=== PATIENT | male | born 1990 | race Two or more races ===

== ENCOUNTER 2025-01-04 00:53 | Emergency (ER) | payer SELFPAY ==
[~2025-01-04] VITALS: Ht 175.3 cm; Wt 72.2 kg
[2025-01-04 01:00] VITALS: BP 159/107; PULSE 110; RESP 18; O2SAT 97
--- NOTE | 2025-01-04 01:27 | ED.PDOC ---
HPI Comments 34-year-old male came to ER due to palpitations. Patient has no medical problems, states he was celebrating , was opening a wine bottle when he started having palpitations. Denies any acute chest pains or shortness of breath. Upon arrival tachycardic at 110 bpm and blood pressure of 159/107 mmHg. Patient denies any fever nausea or vomiting. Chief Complaint: Palpitations Time Seen by MD: 01:27 Reviewed Notes: Nurses Notes Information Source: Patient Mode of Arrival: Ambulatory Severity: Moderate Timing: Hours Duration: Since onset Location: Substernal Quality: Pressure Cardiac Risk Factors: None PE Risk Factors: None History of: None Associated Signs and Symptoms: None Past Medical History PAST MEDICAL HISTORY: Denies Surgical History: Denies all surgeries Family History Family History: Reviewed,noncontributory to illness Social History Smoker: Non-Smoker Alcohol: Occasionally Drugs: Denies Drug Use Lives In: Home Constitutional: denies: chills, diaphoresis, fatigue, fever, malaise, sweats, weakness, others EENTM: denies: blurred vision, double vision, ear bleeding, ear discharge, ear drainage, ear pain, ear ringing, eye pain, eye redness, hearing loss, mouth pain, mouth swelling, nasal discharge, nose bleeding, nose congestion, nose pain, photophobia, tearing, throat pain, throat swelling, voice changes, others Respiratory: denies: cough, hemoptysis, orthopnea, SOB at rest, shortness of breath, SOB with excertion, stridor, wheezing, others Cardiovascular: reports: palpitations; denies: chest pain, dizzy spells, diaphoresis, Dyspnea on exertion, edema, irregular heart beat, left arm pain, lightheadedness, PND, syncope, others Gastrointestinal: denies: abdomen distended, abdominal pain, blood streaked bowels, constipated, diarrhea, dysphagia, difficulty swallowing, hematemesis, melena, nausea, poor appetite, poor fluid intake, rectal bleeding, rectal pain, vomiting, others Genitourinary: denies: burning, dysuria, flank pain, frequency, hematuria, incontinence, penile discharge, penile sore, pain, testicle pain, testicle swelling, urgency, others Neurological: denies: dizziness, fainting, headache, left sided numbness, left sided weakness, numbness, paresthesia, pre-existing deficit, right sided numbness, right sided weakness, seizure, speech problems, tingling, tremors, weakness, others Musculoskeletal: denies: back pain, gout, joint pain, joint swelling, muscle pain, muscle stiffness, neck pain, others Integumetry: denies: bruises, change in color, change in hair/nails, dryness, laceration, lesions, lumps, rash, wounds, others Allergic/Immunocompromised: denies: Difficulty Healing, Frequent Infections, Hives, Itching, others Hematologic/Lymphatic: denies: anemia, blood clots, easy bleeding, easy bruising, swollen glands, others Endocrine: denies: excessive hunger, excessive sweating, excessive thirst, excessive urination, flushing, intolerance to cold, intolerance to heat, unexplained weight gain, unexplained weight loss, others Psychiatric: denies: anxiety, bipolar disorder, depression, hopeless, panic disorder, schizophrenia, sleepless, suicidal, others Physical Exam General Appearance: Moderate Distress ([id number] distress due to palpitation concerns.), Normal HEENT: Normal ENT Inspection, Pharynx Normal, TMs Normal Neck: Full Range of Motion, Non-Tender, Normal, Normal Inspection Respiratory: Chest Non-Tender, Lungs Clear, No Accessory Muscle Use, No Respiratory Distress, Normal Breath Sounds Cardiovascular: No Edema, No JVD, No Murmur, No Gallop, Normal Peripheral Pulses, Tachycardia Breast Exam: Deferred Gastrointestinal: No Organomegaly, Non Tender, No Pulsatile Mass, Normal Bowel Sounds, Soft Genitalia: Deferred Pelvic: Deferred Rectal: Deferred Extremities: No calf tenderness, Normal capillary refill, Normal inspection, Normal range of motion, Non-tender, No pedal edema Musculoskeletal : Apperance: Normal Neurologic: Alert, No Motor Deficits, Normal Affect, Normal Mood, No Sensory Deficits Cerebellar Function: Normal Reflexes: Normal Skin: Dry, Normal Color, Warm Lymphatic: No Adenopathy Was a procedure done? Was a procedure done?: No CP Differential Dx Differential Diagnosis: Angina, Anxiety / Panic Attack, Electrolyte Disorder, Sinus Tachycardia Differential Diagnosis: Myocardial Infarction, Other (Anxiety) X-Ray, Labs, Meds, VS Vital Signs Date Time Temp Pulse Resp B/P (MAP) Pulse Ox O2 Delivery O2 Flow Rate FiO2 01/04/25 01:00 110 01/04/25 01:00 98.5 110 18 159/107 (124) 97 X-Ray, Labs, Meds, VS Comment EKG revealed a sinus tachycardia with a rate of 107. Probable left atrial enlargement as well as borderline right axis deviation and possible normal early repolarization pattern. [place] interval of 157 and QT interval of 325. Nursing and phlebotomy attempted multiple times for over an hour to locate the patient, but it appears the patient has eloped from the facility. Time of 1ST Reevaluation: 03:05 Reevaluation 1ST: Unchanged Consultation: PCP, Cardiology Patient Education/Counseling: Diagnosis, Treatment Family Education/Counseling: Diagnosis, Treatment, No Family Present Departure 1 Departure Time of Disposition: 03:06 Impression: Primary Impression: Palpitations Disposition: 07 LEFT AWOL/ELOPED Condition: Fair Discharged With: Self Critical Care Note Critical Care Time?: No Stability Stability form required: No Heart Score Heart Score: Heart Score Response (Comments) Value History Slightly Suspicious 0 EKG Repolarization Disturb 1 Age <45 0 Risk Factors No known risk factors 0 Troponin Normal limit 0 Total 1 I personally scribed for NILES RICO PAC ([email or web address]) on 01/04/25 at 01:27. Electronically submitted by Stanislaw Cordero ([email or web address]). NILES RICO PAC Jan 04, 2025 01:27
--- NOTE | 2025-01-06 23:51 | ECG ---
[facility] Test Date: 2025-01-04 Test Time: 01:02:06 Pat Name: NICHO DURAND Department: ER Room: Gender: M [employer]otype Operator: SIMRAN : 1990 Requested By: NILES RICO Order Number: [id number] Reading MD: Measurements Intervals Johnson Rate: 108 P: 70 RI: 157 QRS: 97 QRSD: 90 T: 13 QT: 325 QTc: 436 Interpretive Statements Sinus tachycardia Probable left atrial enlargement Borderline right axis deviation ST elev, probable normal early repol pattern Please click the below link to view image of tracing.
== END 2025-01-05 03:06 | disposition left against medical advice (07) ==
LOC: ER 00:53
DX: R00.2 Palpitations (principal)
CPT/HCPCS: 93005